=== PATIENT | female | born 1955 | race Caucasian/White ===

== ENCOUNTER 2019-01-16 19:51 | Emergency (ER) | payer OTHER ==
[2019-01-16] MEDS ORDERED: Ibuprofen 800 MG Tab PO ONE (20:17)
--- NOTE | 2019-01-16 20:21 | EDM.PDOC ---
ED HPI GENERAL MEDICAL PROBLEM - General Chief Complaint: Lower Extremity Injury/Pain Stated Complaint: LEFT ANKLE SPRAIN Time Seen by Provider: 01/16/19 20:00 Source of Information: Reports: Patient History Limitations: Reports: No Limitations - History of Present Illness INITIAL COMMENTS - FREE TEXT/NARRATIVE: Alert 63-year-old female presents with her young grandson complaining of left foot pain due to injury. Patient was wearing flip-flops and walking to dogs. While walking the dogs they took off in one direction her foot was in the flip- flops which caught in the dirt. Patient had significant pain along the arch of her foot over the course of the last 8 hours. Patient's been icing it and taking Tylenol. Cement taking anything for pain in the last 4-6 hours. Patient has a history of multiple small toe fractures and injuries. She has scarring on the dorsum of foot due to soft tissue injury when she was younger. Patient is unable to bear weight on the foot. She can bear weight using her heel to balance. Injury occurred at noon the pain has progressively gotten worse. left ankle Pain Score (Numeric/FACES): 7 - Related Data Allergies Allergy/AdvReac Type Severity Reaction Status Date / Time No Known Allergies Allergy Verified 01/16/19 20:29 Home Meds: Home Meds Acetaminophen/HYDROcodone [[place] 325-5 MG] 1 - 2 tab PO Q6H PRN 2 Days #6 tab [Rx] Review of Systems - Review of Systems Review Of Systems: ROS reveals no pertinent complaints other than HPI. ED EXAM, GENERAL - Physical Exam Exam: See Below Exam Limited By: No Limitations General Appearance: Alert, WD/WN, Mild Distress Ears: Normal External Exam, Hearing Grossly Normal Nose: Normal Inspection, Normal Mucosa Head: Normocephalic (ADL) Neck: Normal Inspection, Full Range of Motion Respiratory/Chest: No Respiratory Distress (likelyshe got an x-ray now even seen yet x-ray was urine and white ago at), Lungs Clear ( was Umina she from [facility] on the machine to do anything else year here is Dr. Meehan), Normal Breath Sounds ( third metatarsal fractures. Eventually he has) Cardiovascular: Normal Peripheral Pulses Extremities: Normal Inspection, Normal Range of Motion, Non-Tender (no pain medial or lateral malleolus), No Pedal Edema, Normal Capillary Refill, Leg Pain (pain, bruising and swelling across dorsum of foot from second to fifth toe at level of Metatarsals. Skin intact. ) Neurological: Alert, Oriented, CN II-XII Intact, Normal Cognition, Normal Gait, Normal Reflexes, No Motor/Sensory Deficits Psychiatric: Normal Affect, Normal Mood Skin Exam: Warm, Dry, Intact, Normal Color, No Rash ED TRAUMA EXTREMITY PROCEDURES - Splinting Left Lower Extremity Splint Site: Left Foot Pre-Procedure NV Status: Normal Post-Procedure NV Status: Normal Splint Material: Fiberglass Splint Design: Posterior Applied & Form Fitted By: Provider Provider Post-Splint Application NV Check: NV Status Normal Complications: No Complication Description: crutches Course - Vital Signs Last Recorded V/S: Last Vital Signs Temp 36.2 C 01/16/19 20:39 Pulse 56 L 01/16/19 20:39 Resp 16 01/16/19 20:39 BP 149/72 H 01/16/19 20:39 Pulse Ox 97 01/16/19 20:39 - Orders/Labs/Meds Orders: Active Orders 24 hr Category Date Time Status Splinting [RC] ASDIRECTED Care 01/16/19 20:17 Active DME for Discharge [COMM] Urgent Oth 01/16/19 20:18 Ordered Meds: Medications Discontinued Medications Generic Name Dose Route Start Last Admin Trade Name Freq PRN Reason Stop Dose Admin Ibuprofen 800 mg 01/16/19 20:17 01/16/19 20:49 Motrin PO 01/16/19 20:18 800 mg ONETIME ONE Administration - Radiology Interpretation Free Text/Narrative:: Left Foot Plain Film: subtle mid shaft cortical irregularity involving second thru fourth digit noted on oblique view. Round avulsion noted on lateral view which may be off the talus per radiology. Radiology report reading: on lateral view, there is a cortical irregularity along the dorsal talar neck. A small plantar calcaneus spur is noted. Joint the visualization of hindfoot and midfoot and forefoot joints unremarkable in appearance. No significant ankle effusion is seen. Soft tissue unremarkable no radiopaque foreign body seen. Impression: A lateral view there is a cortical irregularity along the dorsal talar neck. This likely represents a chronic finding but correlation physical exam for focal tenderness in this region is recommended to exclude avulsion fracture. Patient informed of results splinted offered crutches and follow-up with Orthopedist or [facility] recommended for further evaluation. Departure - Departure Time of Disposition: 21:30 Disposition: Home, Self-Care 01 Clinical Impression: Metatarsal bone fracture, Fracture of foot, Contusion, Strain of foot, left - Discharge Information Prescriptions: Acetaminophen/HYDROcodone [[place] 325-5 MG] 1 - 2 tab PO Q6H PRN 2 Days #6 tab PRN Reason: Pain (Severe 7-10) Instructions: Crutch Use, Adult, [id number], Lisfranc Midfoot Injury, Foot Sprain, Metatarsal Fracture, Cast or Splint Care, Adult Referrals: PCP,None [Primary Care Provider] - Isaías Olvera MD [Physician] - 1 Week (Call Orthopedic clinic for recheck foot injury, possible repeat imaging and weighted films for further evaluation of mid foot injury. ) Forms: ED Department Discharge Additional Instructions: 1. Elevate above heart as much as possible. 2. Crutches to limit weight bearing on injured foot. 3. Ibuprofen 600-800mg every 6-8 hours for pain, swelling and inflammation. 4. [place] as directed for moderate to severe pain. 5. Keep splint clean and dry at all times. 6. Call Orthopedic clinic number given for recheck in 7-10 days for splint removal and repeat evaluation due to foot injury. 7. Avulsion fracture noted on plain film today but fractures may show up 1-2 weeks after injury. - Problem List & Annotations (1) Fracture of foot SNOMED Code(s): 08839107 Code(s): S92.909A - UNSP FRACTURE OF UNSP FOOT, INIT ENCNTR FOR CLOSED FRACTURE Status: Acute Current Visit: Yes - My Orders Last 24 Hours: My Active Orders 01/16/19 20:17 Splinting [RC] ASDIRECTED 01/16/19 20:18 DME for Discharge [COMM] Urgent - Assessment/Plan Last 24 Hours: My Active Orders 01/16/19 20:17 Splinting [RC] ASDIRECTED 01/16/19 20:18 DME for Discharge [COMM] Urgent
--- NOTE | 2019-01-16 20:41 | CRLCR ---
INDICATION: Trauma to arch of left foot after big dog stepped on it TECHNIQUE: Foot radiograph 3 views left COMPARISON: None FINDINGS: Bone: On the lateral view, there is cortical irregularity along the dorsal talar neck. A small plantar calcaneal spur is noted. Joint: The visualized hindfoot, midfoot, and forefoot joints are unremarkable in appearance. No significant ankle effusion is seen. Soft tissue: Unremarkable. No radiopaque foreign bodies are seen. IMPRESSION: 1. On the lateral view, there is cortical irregularity along the dorsal talar neck. This likely represents a chronic finding but correlation with physical exam for focal tenderness in this region is recommended to exclude an avulsion fracture. Dictated by Phani Naranjo MD @ 01/16/2019 8:39:03 PM Dictated by: Phani Naranjo MD @ 01/16/2019 20:39:17 (Electronically Signed)
== END 2019-01-16 22:05 | disposition home or self-care (01) ==
LOC: JP.ED 19:51
DX: S92.302A Fracture of unspecified metatarsal bone(s), left foot, initial encounter for closed fracture (principal); W22.8XXA Striking against or struck by other objects, initial encounter
CPT/HCPCS: 29515; 73630; 99283; A9270; 29125